=== PATIENT | female | born 1965 | race Two or more races ===

== ENCOUNTER 2019-06-05 12:51 | Emergency (ER) | payer BC, MEDICAID ==
[~2019-06-05] VITALS: Ht 152.4 cm; Wt 63.5 kg
[~2019-06-05 12:51] MED LIST: ADAL40KI; ALBUAER3; ALPR0.255; BUPR75TA9 PO; CETI10CA PO; CHOL10009 PO; FLUT1SPR5; FOLI1TAB6 PO; GABA100C9 PO; LAMO25TA2 PO; LEVO100T8; METH2.5T3; OMEP20CA74 PO; OXCA150T61; TRAM100T37 PO; [UNRECOGNIZED DRUG - CODE] XX
[2019-06-05] MEDS ORDERED: SODIUM CHLORIDE 0.9% 500 ML IVB ONE (13:41)
[2019-06-05] MEDS ORDERED: ONDANSETRON HCL 4 MG/2 ML VIAL IV ONE (13:45)
[2019-06-05] MEDS ORDERED: FAMOTIDINE (10MG/ML) 2ML VL IV ONE (13:45)
[2019-06-05] MEDS ORDERED: MORPHINE SULFATE 4 MG/ML SYR/VIAL IV ONE (13:45)
[2019-06-05 13:58] LABS: Basophils # (auto) 0 uL; Basophils % (auto) 0.2 % (0.0-2.0); Eosinophils # (auto) 0.2 uL; Eosinophils % (auto) 1.3 % (0.0-7.0); Hematocrit 46.6 % (36.0-46.0); Hemoglobin 15.7 g/dL (12.2-16.2); Lymphocytes # (auto) 1.6 uL; Lymphocytes % (auto) 8.6 % (10.0-50.0); Mean Corpuscular Hemoglobin 31.5 pg (28.0-32.0); Mean Corpuscular Hgb Conc. 33.8 g/dL (32.0-36.0); Mean Corpuscular Volume 93.4 fL (80.0-100.0); Monocytes % (auto) 5.3 % (0.0-12.0); Neutrophils # (auto) 15.5 uL; Neutrophils % (auto) 84.6 % (37.0-80.0); Platelet Count (auto) 262 10^3/uL (140-450); Red Blood Cells 4.99 10^6/uL (4.0-5.20); Red Cell Distribution Width 13.4 % (11.8-14.3); White Blood Cell 18.3 10^3/uL (4.4-10.8)
[2019-06-05 14:07] LABS: Albumin 3.4 g/dL (3.4-5.0); Anion Gap 9 (5-15); Blood Urea Nitrogen 10 mg/dL (7-18); Carbon Dioxide 23 mmol/L (21-32); Chloride 111 mmol/L (98-107); Glucose 82 mg/dL (74-106); Potassium 3.6 mmol/L (3.5-5.1); Sodium 143 mmol/L (136-145)
[2019-06-05 14:09] LABS: Alanine Aminotransferase 30 U/L (13-56); Aspartate Aminotransferase 15 U/L (15-37); BUN/Creatinine Ratio 14.7; GFR African American 116 mL/min; GFR Non-African American 96 mL/min
[2019-06-05 14:13] LABS: Alkaline Phosphatase 108 U/L (45-117); Bilirubin, Total 0.5 mg/dL (0.2-1.0); Total Protein 7.7 g/dL (6.4-8.2)
[2019-06-05 14:44] LABS: Urine Bacteria FEW /hpf (None Seen); Urine Blood Negative /uL (Negative); Urine Specific Gravity 1.004 (1.001-1.035); Urine WBC 1 /hpf (0 - 5)
[2019-06-05 17:58] VITALS: BP 118/77
== END 2019-06-05 18:40 | disposition home or self-care (01) ==
LOC: ER 12:55
DX: R10.9 Unspecified abdominal pain (principal); M19.90 Unspecified osteoarthritis, unspecified site; E78.5 Hyperlipidemia, unspecified; F17.210 Nicotine dependence, cigarettes, uncomplicated; Z90.710 Acquired absence of both cervix and uterus; Z98.51 Tubal ligation status; Z79.899 Other long term (current) drug therapy; Z88.2 Allergy status to sulfonamides
CPT/HCPCS: 36415; 74176; 80053; 81001; 83690; 84484; 85025; 93005; 94761; 96374; 96375; 99284; J2270; J2405; J3490; J7040; 96361

== ENCOUNTER 2024-01-03 11:47 | Emergency (ER) | payer BC, MEDICAID ==
[~2024-01-03] VITALS: Ht 152.4 cm; Wt 65.9 kg
[~2024-01-03 11:47] MED LIST changes: -BUPR75TA9 PO; +BUPR75TA96 PO; +FOLI-119 PO; -FOLI1TAB6 PO; +GABA-1308 PO; -GABA100C9 PO; +METH2.5T; -METH2.5T3; +TRAM100T32 PO; -TRAM100T37 PO
[2024-01-03 13:05] LABS: Basophils # (auto) 0.1 10 ^3/uL (0-0.2); Basophils % (auto) 0.5 % (0.0-2.0); Eosinophils # (auto) 0.2 10 ^3/uL (0-0.8); Hematocrit 44.3 % (36.0-46.0); Hemoglobin 15.5 g/dL (12.2-16.2); Lymphocytes # (auto) 2.7 10 ^3/uL (0.4-5.4); Lymphocytes % (auto) 25.4 % (10.0-50.0); Mean Corpuscular Hemoglobin 33.1 pg (28.0-32.0); Mean Corpuscular Volume 94.4 fL (80.0-100.0); Monocytes # (auto) 0.8 10 ^3/uL (0-1.3); Monocytes % (auto) 7.7 % (0.0-12.0); Neutrophils # (auto) 6.8 10 ^3/uL (1.6-8.6); Neutrophils % (auto) 64.4 % (37.0-80.0); Red Cell Distribution Width 12.6 % (11.8-14.3); White Blood Cell 10.5 10^3/uL (4.4-10.8)
[2024-01-03 13:27] LABS: Alanine Aminotransferase 33 U/L (7-40); Albumin 4.4 g/dL (3.2-4.8); Alkaline Phosphatase 78 U/L (46-116); Anion Gap 7 (5-15); Aspartate Aminotransferase 28 U/L (13-40); BUN/Creatinine Ratio 12.1 (10.0-20.0); Bilirubin, Total 0.5 mg/dL (0.2-1.0); Blood Urea Nitrogen 8 mg/dL (9-23); Calcium 9.7 mg/dL (8.5-10.1); Carbon Dioxide 28 mmol/L (20-30); Chloride 107 mmol/L (98-107); Glucose 102 mg/dL (74-106); Potassium 3.6 mmol/L (3.5-5.1); Sodium 142 mmol/L (136-145)
[2024-01-03 13:28] LABS: Total Protein 7.7 g/dL (5.7-8.2)
[2024-01-03 14:32] LABS: Urine Bacteria FEW /hpf (None Seen); Urine Blood Negative /uL (Negative); Urine Clarity HAZY (Clear); Urine Color Colorless (Yellow); Urine Hyaline Cast FEW /lpf (0 - 2); Urine Protein, UAD Negative (Negative); Urine Specific Gravity 1.005 (1.001-1.035); Urine Urobilinogen Normal (Negative); Urine WBC 5 /hpf (0 - 5); Urine pH 5.5 (5.0-8.0)
[2024-01-03] MEDS: SODIUM CHLORIDE 0.9% 1,000 ML IV ONE (15:17)
[2024-01-03] MEDS: LORazepam 2MG/ML-1ML VIAL IV ONE (15:18)
[2024-01-03] MEDS: MORPHINE SULFATE INJ 2 MG/ml SYRG IV ONE (15:18)
[2024-01-03] MEDS: ONDANSETRON HCL 4 MG/2 ML VIAL IV ONE (15:18)
[2024-01-03] MEDS ORDERED: SODIENE35 RE (15:33)
[2024-01-03] MEDS ORDERED: MAGN100T6 OR (15:33)
[2024-01-03] MEDS ORDERED: CEPH500C PO (15:33)
[2024-01-03] MEDS: cefTRIAXone 1GM/50ML D5W 50 ML IV ONE (16:49)
[2024-01-03] MEDS ORDERED: METR-344 PO (17:11)
[2024-01-03 17:36] VITALS: BP 118/80; PULSE 70; RESP 18; TEMP 97.8; O2SAT 95
== END 2024-01-03 15:34 | disposition home or self-care (01) ==
LOC: ER 11:47
DX: N39.0 Urinary tract infection, site not specified (principal); K59.00 Constipation, unspecified; F41.9 Anxiety disorder, unspecified; M19.90 Unspecified osteoarthritis, unspecified site; E78.5 Hyperlipidemia, unspecified; F17.210 Nicotine dependence, cigarettes, uncomplicated; Z86.2 Personal history of diseases of the blood and blood-forming organs and certain disorders involving the immune mechanism; Z98.890 Other specified postprocedural states; Z79.899 Other long term (current) drug therapy
CPT/HCPCS: 36415; 74176; 80053; 81001; 85025; 96361; 96365; 96375; 99285; J0696; J2060; J2270; J2405; J7030